=== PATIENT | female | born 1985 | race Caucasian/White ===

== ENCOUNTER 2025-04-20 06:54 | Emergency (ER) | payer OTHER, SELFPAY ==
[2025-04-20 07:02] VITALS: BP 147/94; PULSE 94; RESP 18; TEMP 36.6; O2SAT 98; BMI 21.1
--- NOTE | 2025-04-20 07:06 | ED.GENADULT ---
HPI - General Adult General Chief complaint: Skin/Abscess/Foreign Body Stated complaint: Abscess Time Seen by Provider: 04/20/25 07:06 History of Present Illness ED Provider: Kingston GOMEZ narrative: The patient is a 40-year-old woman who has a painful sore in her left groin area that started about 2 or 3 days ago. She says that over the last year she has had problems with multiple soft tissue skin infections mostly on her buttocks and in her axillae. She says that last year she needed to have a buttock abscess incised and drained. This was done in [place]. The patient says that this problem with recurrent skin problems is new over the last year. She does not know why she has been having these problems and she is concerned about it. She has not had a primary care doctor. She recently moved to this area from [place]. She has obtained health insurance but has not yet obtained primary care doctor. No fever, sweats, chills. The patient also has a lesion on her right lower lip that she thought might be a bug bite. She says that she has a history of cold sores around her mouth. She says that this lesion is not like cold sore she has sat around her mouth in the past. The patient is also requesting STD testing. She says that she recently was having a relationship with a man she did not know very well. She says that he abruptly broke things off and she is concerned because she did not know very much about him. She has no symptoms however. No vaginal discharge, pelvic discomfort or other symptoms. She has had no fever, sweats, chills. No cough or sputum. She is on no medications. She does not have any definite suspicion she might be . She is due to start her period in the next few days. Related Data Previous Rx's ?Medication ?Instructions ?Recorded cephalexin 500 mg capsule 500 mg PO QID 7 days #28 caps 04/20/25 doxycycline monohydrate 100 mg 100 mg PO BID #14 tabs 04/20/25 tablet Allergies Allergy/AdvReac Type Severity Reaction Status Date / Time No Known Allergies (No Known Allergy Verified 04/20/25 07:03 Allergies*) Review of Systems Review of Systems: Yes all other systems are reviewed and are negative PMFSH Social History Social History Smoked in Last 30 Days: Yes Use of substances other than those prescribed or required for medical reasons: Yes Substance Use Type: Marijuana Substance Use Frequency: Occasionally Advance Directives: No Advance Directives Information Provided: Yes Do you have a plan to hurt others: No Plan Physical Exam ED Vital Signs: Vital Signs - 24 hr 04/20/25 07:02 04/20/25 08:39 Temperature 98 F 98 F Pulse Rate 94 94 Respiratory Rate 18 18 Blood Pressure 147/94 H 147/94 H Pulse Oximetry 98 98 Oxygen Delivery Method Room Air Room Air BMI result Body Mass Index 21.1 Const Other: The patient is awake, alert, pleasant, cooperative. She does not appear in any distress. Orientation/consciousness: patient oriented x3 HENMT Other: There is a small lesion to the skin of the face just below the right lower lip. This is very close to the vermilion border. There is no lip swelling. No intraoral swelling. Eyes Other: Pupils are round equal, conjunctivae are clear, extraocular movements intact General: appearance normal, both eyes and all related structures Neck Neck: Yes normal visual inspection, Yes full ROM and Yes no lymphadenopathy Resp Effort & Inspection: normal respiratory effort Auscultation: clear to auscultation bilaterally Cardio Rate: regular rate Rhythm: regular rhythm Heart sounds: S1 normal heart sound present and S2 normal heart sound present GI Other: Abdomen is soft and nontender Skin Other: There is a small area of redness and swelling in the left groin in the inguinal crease. There is an area of swelling about 1 cm in diameter. It is not fluctuant. No drainage. Mild redness. The patient has multiple small scars on her buttocks indicative of previous skin infections. Neuro General: patient oriented x3, tone normal, moves all extremities, no focal motor deficits and CN's II-XI intact bilaterally Extrem Other: There is no calf swelling or tenderness. No asymmetry. No peripheral edema. Medications Administered Discontinued Medications Generic Name Dose Route Start Last Admin Trade Name Freq PRN Reason Stop Dose Admin Cephalexin HCl 500 mg 04/20/25 08:30 04/20/25 08:36 Cephalexin 500 Mg Capsule PO 04/20/25 08:31 500 mg ONCE ONE Administration Doxycycline Monohydrate 100 mg 04/20/25 08:30 04/20/25 08:36 Doxycycline Monohydrate 100 Mg Capsule PO 04/20/25 08:31 100 mg ONCE ONE Administration Medical Decision Making Medical Decision Making MDM Narrative: the patient has a small furuncle in the region of the left inguinal crease. I do not think this is an abscess. The patient otherwise looks well. The patient will be started on doxycycline and cephalexin. As a separate issue the patient asked for STD testing. She does not have any symptoms of vaginal discharge or any other pelvic symptoms but she requested testing nevertheless. A urine for GC and chlamydia is negative. Lab Data Labs: Lab Results 04/20/25 Range/Units 07:31 Urine Test NEGATIVE (NEGATIVE) Ur N gonorrhoeae DNA (PCR) NOT DETECTED (Not Detect.) Ur Chlamydia DNA (PCR) NOT DETECTED (Not Detect.) Discharge Plan Discharge Clinical Impression: Furuncle of groin Patient Disposition: Home, Self-Care Instructions: Folliculitis (ED) Additional Instructions: I have sent a prescription for 2 antibiotics to your pharmacy. The antibiotics are cephalexin, and doxycycline. Please take the cephalexin 4 times a day. Please take the doxycycline 2 times a day. Your test was negative. I will call you if there is any positive testing from your urine sample. Please follow up soon with your regular doctor's office to discuss these recurrent problems further. Return to the emergency room if significantly worse. Prescriptions: New cephalexin 500 mg capsule 500 mg PO QID 7 Days Qty: 28 0RF doxycycline monohydrate 100 mg tablet 100 mg PO BID Qty: 14 0RF Referrals: Lindsey Chinchilla MD [Primary Care Provider, Medical] Interventions: ED Discharge Assessment Last Done: 04/20/25 08:39 Discharge Date/Time: 04/20/25 08:40 Print Language: Mongolian
[2025-04-20 07:48] LABS: UPreg QC Valid YES
[2025-04-20 08:39] VITALS: BP 147/94; PULSE 94; RESP 18; TEMP 36.6; O2SAT 98
[2025-04-20 10:00] LABS: CT PCR Urine NOT DETECTED (Not Detect.); NG PCR Urine NOT DETECTED (Not Detect.)
== END 2025-04-20 08:40 | disposition home or self-care (01) ==
PROVIDERS: Emergency Provider Emergency Medicine; PCP Internal Medicine
DX: L02.224 Furuncle of groin (principal); Z79.899 Other long term (current) drug therapy
CPT/HCPCS: 81025; 87491; 87591; 99283; 99284